=== PATIENT | female | born 1990 | race Caucasian/White ===

== ENCOUNTER → 2016-05-13 | Outpatient (CLI) | payer OTHER ==
[2016-05-13 13:15] LABS: URINE APPEARANCE CLEAR (CLEAR); URINE BILIRUBIN NEG (NEG); URINE COLOR DK YELLOW; URINE NITRITE NEG (NEG); URINE PH 5.5 (4.5-7.5); URINE SPECIFIC GRAVITY 1.027 (1.000-1.030); UROBILINOGEN NEG (NEG)
[2016-05-13 13:38] LABS: MANUAL MICROSCOPIC REQUIRED? NO; REVIEW REQ? NO
== END | disposition home or self-care (01) ==
LOC: C.LABSPEC 11:13
PROVIDERS: ATTEND Obstetrics & Gynecology
DX: Z34.00 Encounter for supervision of normal first pregnancy, unspecified trimester (principal)

== ENCOUNTER → 2016-05-19 | Outpatient (CLI) | payer OTHER ==
[~2016-05-19] MED LIST: CALC-51; OMEG10007 PO; PREN-83
== END | disposition home or self-care (01) ==
LOC: C.PAPS 15:10
PROVIDERS: ATTEND Obstetrics & Gynecology
DX: Z12.4 Encounter for screening for malignant neoplasm of cervix (principal)

== ENCOUNTER → 2016-05-19 | Outpatient (CLI) | payer OTHER ==
[2016-05-19 12:03] LABS: BASO % 0.2 %; BASO ABS # 0.02 K/uL (0-0.2); COMPLETE YES; EOS % 0.4 %; HEMATOCRIT 39.3 % (37-47); IG% 0.4 %; LYMPH % 18.6 %; LYMPH ABS # 1.93 K/uL (1.2-3.4); MEAN CELL VOLUME 83.3 fL (80-100); MEAN CORPUSCULAR HEMOGLOBIN 28.6 pg (25-34); MEAN CORPUSCULAR HGB CONC 34.4 g/dl (32-36); MONO % 6.7 %; NEUT % 73.7 %; PLATELET COUNT 330 K/uL (130-400); RED BLOOD COUNT 4.72 M/uL (4.2-5.4); WHITE BLOOD COUNT 10.38 K/uL (4.8-10.8)
== END | disposition home or self-care (01) ==
LOC: C.LAB1850 10:30
PROVIDERS: ATTEND Obstetrics & Gynecology
DX: Z34.00 Encounter for supervision of normal first pregnancy, unspecified trimester (principal)

== ENCOUNTER → 2016-05-19 | Outpatient (CLI) | payer OTHER ==
[2016-05-22 11:40] LABS: CHLAMYDIA TRACH RNA*** NOT DETECTED (NOT DETECTED); GC (NEIS GONORRHOEAE)RNA** NOT DETECTED (NOT DETECTED)
== END | disposition home or self-care (01) ==
LOC: C.LABSPEC 14:13
PROVIDERS: ATTEND Obstetrics & Gynecology
DX: Z34.00 Encounter for supervision of normal first pregnancy, unspecified trimester (principal)

== ENCOUNTER → 2016-07-15 | Outpatient (CLI) | payer OTHER ==
[2016-07-15 11:19] LABS: GTGD 50 Grams
== END | disposition home or self-care (01) ==
LOC: C.LAB1850 09:23
PROVIDERS: ATTEND Obstetrics & Gynecology
DX: Z34.00 Encounter for supervision of normal first pregnancy, unspecified trimester (principal)

== ENCOUNTER → 2016-10-05 | Outpatient (CLI) | payer OTHER ==
[2016-10-05 16:58] LABS: HEMATOCRIT 33.6 % (37-47)
[2016-10-05 19:19] LABS: URINE APPEARANCE CLEAR (CLEAR); URINE BILIRUBIN NEG (NEG); URINE COLOR YELLOW; URINE EPITHELIAL CELL AUTO >30 /lpf (0-5); URINE NITRITE NEG (NEG); URINE PH 6.5 (4.5-7.5); URINE SPECIFIC GRAVITY 1.024 (1.000-1.030); UROBILINOGEN NEG (NEG)
[2016-10-05 19:23] LABS: MANUAL MICROSCOPIC REQUIRED? NO; REVIEW REQ? NO
[2016-10-05 19:48] LABS: GTGD 50 Grams
== END | disposition home or self-care (01) ==
LOC: C.LAB1850 14:48
PROVIDERS: ATTEND Obstetrics & Gynecology
DX: Z34.02 Encounter for supervision of normal first pregnancy, second trimester (principal)

== ENCOUNTER → 2016-12-02 | Outpatient (CLI) | payer OTHER | END | disposition home or self-care (01) | LOC: C.LABSPEC 17:36 | PROVIDERS: ATTEND Obstetrics & Gynecology | DX: Z34.03 Encounter for supervision of normal first pregnancy, third trimester (principal) ==

== ENCOUNTER → 2017-05-13 | Outpatient (CLI) | payer OTHER ==
[2017-05-13 10:04] LABS: BASO % 0.2 %; BASO ABS # 0.02 K/uL (0-0.2); EOS % 0.4 %; EOS ABS # 0.04 K/uL (0-0.5); HEMATOCRIT 37.9 % (37-47); HEMOGLOBIN 13.2 g/dL (12.0-16.0); IG# 0.01 K/uL (0.00-0.02); LYMPH % 19.8 %; MEAN CELL VOLUME 82.6 fL (80-100); MEAN CORPUSCULAR HEMOGLOBIN 28.8 pg (25-34); MEAN CORPUSCULAR HGB CONC 34.8 g/dl (32-36); MEAN PLATELET VOLUME 9.1 fL (7.4-10.4); MONO % 5.8 %; MONO ABS # 0.53 K/uL (0.11-0.59); NEUT % 73.7 %; PLATELET COUNT 279 K/uL (130-400); RED CELL DISTRIBUTION WIDTH CV 12.8 % (11.5-14.5); RED CELL DISTRIBUTION WIDTH SD 38.4 fL (36.4-46.3)
== END | disposition home or self-care (01) ==
LOC: C.LAB1850 08:57
PROVIDERS: ATTEND Obstetrics & Gynecology
DX: O09.899 Supervision of other high risk pregnancies, unspecified trimester (principal)

== ENCOUNTER → 2017-06-22 | Outpatient (CLI) | payer OTHER | END | disposition home or self-care (01) | LOC: C.LAB1850 10:09 | PROVIDERS: ATTEND Obstetrics & Gynecology | DX: O09.899 Supervision of other high risk pregnancies, unspecified trimester (principal); Z3A.00 Weeks of gestation of pregnancy not specified ==

== ENCOUNTER → 2017-09-13 | Outpatient (CLI) | payer OTHER ==
[2017-09-13 17:29] LABS: HEMATOCRIT 35.5 % (37-47); HEMOGLOBIN 12.1 g/dL (12.0-16.0)
== END | disposition home or self-care (01) ==
LOC: C.LAB1850 17:10
PROVIDERS: ATTEND Obstetrics & Gynecology
DX: Z34.83 Encounter for supervision of other normal pregnancy, third trimester (principal)

== ENCOUNTER 2018-08-22 07:30 | Inpatient (IN) ==
[2018-08-22] MEDS ORDERED: OXYTOCIN 30 UNITS/500 ML BAG IV PRN ×2 (09:07→22:11)
[2018-08-22] MEDS ORDERED: miSOPROStol 200 MCG TAB PV ONE (09:07)
[2018-08-22] MEDS ORDERED: LACTATED RINGER'S 1,000 ML IV PRN (09:07)
[2018-08-22 10:01] LABS: Hemoglobin 13.6 g/dL (12.0-16.0); Mean Corpuscular Volume 82.3 fL (80-100); Mean Platelet Volume 9.3 fL (7.4-10.4); Platelet Count 246 K/uL (130-400); RDW Coefficient of Variation 12.6 % (11.5-14.5); Red Blood Count 4.74 M/uL (4.2-5.4)
[2018-08-22 10:08] LABS: Mean Corpuscular Hgb Conc 34.9 g/dL (32-36)
[2018-08-22 10:18] LABS: Albumin Level 3.4 gm/dl (3.4-5.0); BUN Creatinine Ratio 13.1 (10-20); Calcium 8.3 mg/dl (8.5-10.1); Creatinine Clr Calc Pharmacy 137.2 ml/min; Est GFR (African American) 146.2; Est GFR (Non-African American) 126.2; Potassium 3.6 mmol/L (3.5-5.1)
[2018-08-22 10:21] LABS: Albumin Globulin Ratio 0.9 (0.9-2); Bilirubin,Total 0.6 mg/dl (0.2-1); Globulin 3.7 gm/dl (2.5-4.0); Total Protein 7.1 gm/dl (6.4-8.2)
[2018-08-22 10:28] LABS: Hepatitis B Surface Antibody Immune
[2018-08-22] MEDS ORDERED: IBUPROFEN 800 MG TAB PO STA (10:39)
--- NOTE | 2018-08-22 10:53 | History & Physical Report ---
Date of Service August 22, 2018 Assessment & Plan (1) IUFD at less than 20 weeks of gestation: Admit to L&D. Patient did not complete her initial labs, will do these now. Will let patient eat breakfast, then will start induction process with cytotec. Discussed cytotec protocol - will give 800mcg, then 400mcg Q3h until delivery. Questions answered. Patient and spouse are not sure if they want to do genetic testing of or not. UPDATE: Cytotec 800mcg placed vaginally. History of Present Illness Chief Complaint: IUFD - 15w Primary Care Provider: Osmar Bergman MD 28yo @ 16w3d with IUFD diagnosed in office on with dates 15w2d. complicated by atypical migraines, ASCUS pap with +HPV. No bleed ing/leaking. No contractions. No nausea/vomiting. Patient was offered D&E, but declined. She wants to avoid general anesthesia if at all possible. 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 Adequate-appearing fluid. Results & Data Vital Signs (Past 12 Hours) Vital Signs Temp Pulse Resp BP 08/22/18 08:41 76 104/61 08/22/18 08:37 36.8 C 16
[2018-08-22] MEDS ORDERED: miSOPROStol 200 MCG TAB ONE (13:21)
--- NOTE | 2018-08-22 13:30 | Obstetrical Progress Note ---
Date of Service August 22, 2018 Subjective Feeling slightly crampy. 2nd cytotec dose placed, 400mcg. Cervix still closed. She is asking for ibuprofen at this time. Results & Data Vital Signs (Past 12 Hours) Vital Signs Temp Pulse Resp BP 08/22/18 12:12 36.8 C 75 18 100/59 L 08/22/18 08:41 76 104/61 08/22/18 08:37 36.8 C 16
[2018-08-22] MEDS ORDERED: OXYCODONE/ACETAMINOPHEN 5mg/325mg TAB PO STA (14:02)
[2018-08-22] MEDS ORDERED: OXYCODONE/ACETAMINOPHEN 5mg/325mg TAB ONE (14:03)
[2018-08-22] MEDS: miSOPROStol 200 MCG TAB PO SCH ×3 (16:25→22:28)
[2018-08-22] MEDS ORDERED: OXYCODONE/ACETAMINOPHEN 5mg/325mg TAB PO PRN (17:30)
--- NOTE | 2018-08-22 19:37 | Procedure Note ---
Vaginal Delivery Summary Date of Service August 22, 2018 Vaginal Delivery Summary Vaginal Delivery Summary: Pre-delivery diagnoses: 28yo @ 16w3d with IUFD measuring 15w2d. Post-delivery diagnoses: same Procedure: spontaneous vaginal delivery Surgeon: Mickie Nicole DO Complications: none Findings: Nonviable . Apgars: none . Estimated blood loss: 100cc Description of delivery: When I was called to the room, the patient had already delivered the fetus, it was lying between her legs. The cord was clamped and cut. Approx 100cc clots expelled from the vagina. The placenta was still in the uterus. Another dose of PO cytotec 400mcg will be given to aid in delivery of placenta. The cervix, vagina, and perineum were inspected and no lacerations were noted. Gross inspection of fetus reveals a nonviable approximately 15w gestation. Appears male. No obvious deformities or abnormalities. Mickie Nicole DO [facility]
[2018-08-22] MEDS ORDERED: IBUPROFEN 800 MG TAB PO PRN (20:00)
[2018-08-22] MEDS ORDERED: BISACODYL 10 MG SUPP PR PRN (22:11)
[2018-08-22] MEDS ORDERED: SUPERCREAM 0.870% 15 GM JAR EXT PRN (22:11)
[2018-08-22] MEDS ORDERED: HYDROCORTISONE ACETATE 25 MG SUPP PR PRN (22:11)
[2018-08-22] MEDS ORDERED: BENZOCAINE 20% AER SPR 82.5 GM CAN EXT PRN (22:11)
[2018-08-22] MEDS ORDERED: ACETAMINOPHEN 325 MG TAB PO PRN (22:11)
[2018-08-22] MEDS ORDERED: CEFAZOLIN 1000MG 1,000 MG/7.5 ML SYR IV SCH (22:15)
[2018-08-23 06:49] LABS: Hematocrit (blood only) 32.7 % (37-47); Hemoglobin 11.4 g/dL (12.0-16.0); Mean Corpuscular Hgb Conc 34.9 g/dL (32-36); Mean Corpuscular Volume 82.6 fL (80-100); Mean Platelet Volume 9.3 fL (7.4-10.4); Platelet Count 211 K/uL (130-400); RDW Coefficient of Variation 12.7 % (11.5-14.5); RDW Standard Deviation 38.5 fL (36.4-46.3); Red Blood Count 3.96 M/uL (4.2-5.4); White Blood Count 7.32 K/uL (4.8-10.8)
--- NOTE | 2018-08-23 07:48 | Obstetrical Progress Note ---
Date of Service August 23, 2018 Assessment & Plan (1) IUFD at less than 20 weeks of gestation: PPD#1 doing well. Emotionally stable. Bleeding has slowed. She did pass a small piece of placental tissue this morning. Will plan to discharge to home, followup in office in 2-4 weeks. Discharge instr uctions discussed. Subjective Ambulation: ambulating normally Voiding: no voiding problems Passing Gas:: Yes Diet Tolerance:: regular diet Lochia:: Moderate PPD#1 s/p of IUFD. Feels like she is doing ok emotionally. Knows she will be busy with her 3 children (2 biological sons, 1 step daughter) when she gets home. Review of Systems All systems reviewed & are unremarkable except as noted in HPI & below Physical Exam Gen: AAOx3 NAD CV: RRR L: CTAB Abd: soft, NTTP. Ext: no edema Results & Data Vital Signs (Past 12 Hours) Vital Signs Temp Pulse Resp BP 08/23/18 07:17 75 111/61 08/23/18 03:23 36.7 C 18 08/23/18 03:14 75 97/58 L 08/23/18 02:10 72 100/57 L 08/23/18 01:10 79 93/55 L 08/22/18 23:53 68 98/57 L 08/22/18 23:45 36.7 C 16 08/22/18 23:34 68 99/54 L 08/22/18 23:15 16 08/22/18 23:13 68 113/64 08/22/18 22:53 62 107/60 08/22/18 22:42 18 08/22/18 22:27 18 08/22/18 22:24 81 108/70 08/22/18 22:09 83 116/76 08/22/18 21:57 18 08/22/18 21:53 77 118/73 08/22/18 21:49 75 113/68 08/22/18 21:42 36.7 C 96 H 18 100/56 L 08/22/18 21:27 18
[2018-08-23] MEDS ORDERED: DOCUSATE SODIUM 100 MG CAP PO SCH (08:00)
[2018-08-23] MEDS ORDERED: BISACODYL 5 MG TABEC PO SCH (20:00)
--- NOTE | 2018-08-30 20:19 | Discharge Summary ---
Date of Service August 30, 2018 Admission HPI Per Admitting Provider 28yo @ 16w3d with IUFD diagnosed in office on with dates 15w2d. complicated by atypical migraines, ASCUS pap with +HPV. No bleeding/leaking. No contractions. No nausea/vomiting. Patient was offered D&E, but declined. She wants to avoid general anesthesia if at all possible. Hospital Course (1) IUFD at less than 20 weeks of gestation: PPD#1 doing well. Emotionally stable. Bleeding has slowed. She did pass a small piece of placental tissue this morning. Will plan to discharge to home, followup in office in 2-4 weeks. Discharge instructions discussed.
== END 2018-08-23 10:05 | disposition home or self-care (01) | DRG 807 ==
LOC: 4S1 07:57

== ENCOUNTER 2019-08-20 04:11 | Inpatient (IN) ==
[2019-08-20] MEDS ORDERED: OXYTOCIN 30 UNITS/500 ML BAG IV PRN ×2 (04:23→11:48)
[2019-08-20] MEDS ORDERED: LACTATED RINGER'S 1,000 ML IV PRN (04:23)
[2019-08-20 04:48] LABS: Hematocrit (blood only) 40.6 % (37-47); Hemoglobin 13.4 g/dL (12.0-16.0); Mean Corpuscular Volume 84.9 fL (80-100); Mean Platelet Volume 10.4 fL (7.4-10.4); Platelet Count 202 K/uL (130-400); RDW Coefficient of Variation 13.4 % (11.5-14.5); RDW Standard Deviation 41.4 fL (36.4-46.3); Red Blood Count 4.78 M/uL (4.2-5.4); White Blood Count 9.48 K/uL (4.8-10.8)
--- NOTE | 2019-08-20 07:31 | History & Physical Report ---
Date of Service August 20, 2019 Assessment & Plan (1) : Admit to L&D for labor. Since not tested prior to admission, rapid COVID test on admit. EFM/toco, IV fluids, labs. Does not plan on epidural, however is amenable to AROM if she does not make progress. Admission and Anticipated Discharge Date Admission Date: August 20, 2019 History of Present Illness Chief Complaint: labor Primary Care Provider: Anali Vallecillo PA-C 29yo @ 40 04/28, regular contractions every few minutes. No leaking of fluid, no vaginal bleeding. + movement. complicated by h/o 17w loss in prior , mild cervical dysplasia - plans for repeat pap at 6w PP. Allergies Allergy/AdvReac Type Severity Reaction Status Date / Time No Known Drug Allergies Allergy Verified 08/17/19 15:38 Home Medications Home Medications Medication Instructions Recorded Confirmed Type prenat.vits,irene,hsb-bfcb-tlbty 1 tab PO DAILY 12/29/18 08/20/19 History Patient History Medical History Anemia hx of ASCUS with positive high risk HPV cervical Eczema Encounter for anatomic survey IUFD at less than 20 weeks of gestation (Resolved) August 2018 Migraine Ovarian cyst hx of Surgical History History of removal of skin mole Family History Mother Arthritis Hyperthyroidism Depression Grandfather (Maternal) Diabetes Aunt Diabetes Father Heart disease Hypertension Social History Preferred Language: Jamaican Communication Ability: Effective 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 Beliefs That Will Affect Care: None marital status: Single marital status details: Alirio Peña (36) [phone] Current Living Situation: Family and Significant Other Current Living Situation Comment: lives with FOB and children, no pets current occupational status: unemployed current occupation: Homemaker Other Information That Helps Us Care for You: No Feels Safe at Home: Yes Safety Concerns: Feels Safe At This Time Smoking Status: Never smoker Hx Alcohol Use: No Hx Substance Use: No Review of Systems All systems reviewed & are unremarkable except as noted in HPI & below Physical Exam Physical Exam: Cervix 4-5/90/-2. FHT Cat 1, [place] Q 2-3 Constitutional: WD/WN, vitals as above Respiratory: normal respiratory effort, lungs clear to auscultation no respiratory distress Cardiovascular: Rate/Rhythm: regular rate and regular rhythm Gastrointestinal (Abdomen): Inspection/Auscultation: abdomen normal to inspection Percussion/Palpation: abdomen soft; abdomen nontender Gravid. No s/s chorio or abruption. Skin: no rashes, warm and dry Psychiatric: A+Ox3, euthymic affect Results & Data ([facility]) Vital Signs (Past 12 Hours) Vital Signs Temp Pulse Resp BP 08/20/19 07:25 68 129/66 08/20/19 04:27 36.4 C L 18 08/20/19 04:18 66 131/75 Coding Level of Care Code None Diagnoses Z34.90
--- NOTE | 2019-08-20 10:05 | Obstetrical Progress Note ---
Date of Service August 20, 2019 Assessment & Plan Admission and Anticipated Discharge Date Admission Date: August 20, 2019 Subjective Breathing through contractions. FHT Cat 1 [place] Q 2-6 min SVE 5/90/-2 AROM clear fluid. Results & Data ([facility]) Vital Signs (Past 12 Hours) Vital Signs Temp Pulse Resp BP 08/20/19 07:28 36.4 C L 16 08/20/19 07:25 68 129/66 08/20/19 04:27 36.4 C L 18 08/20/19 04:18 66 131/75 PG Care Time/CCT Total # of Minutes Spent Total Time Spent with Patient: Total time spent is greater than 50% in coordination of care (as documented) at patient's floor/unit and/or counseling patient: Coding Level of Care Code None
--- NOTE | 2019-08-20 11:26 | Delivery Summary ---
Vaginal Delivery Summary Date of Service August 20, 2019 Vaginal Delivery Summary Vaginal Delivery Summary: Pre-delivery diagnoses: 29yo @ 40 04/28, spontaneous labor Post-delivery diagnoses: same Procedure: spontaneous vaginal delivery Surgeon: Mickie Nicole DO Complications: none Findings: Viable female . Apgars: . Weight pending, please see nursery records Estimated blood loss: 300ml Description of delivery: The patient progressed to complete without anesthesia. She then began to push. She spontaneously vaginally delivered a viable from the cephalic presentation. The head delivered in BALA position. No nuchal cord. The anterior shoulder did not deliver immediately, and posterior arm was noted, therefore posterior shoulder was delivered first, and arm followed, then anterior shoulder and body. The baby was placed on mother's abdomen and a spontaneous cry was heard. Delayed cord clamping was employed, and the cord was doubly clamped and cut. Cord blood was obtained. The placenta was delivered spontaneously intact with a 3-vessel cord. The uterus and vagina were swept of clots and debris. IV pitocin was given. The uterus became firm. The cervix, vagina, and perineum were inspected and no lacerations were noted. Excellent hemostasis was observed. The mother and baby are recovering in stable and good condition in the room. Sponge and instrument counts were correct x 2. Mickie Nicole DO [facility] Vaginal Delivery Charge Vaginal Delivery Codes: 48527 global code for the antepartum, delivery, and post-
[2019-08-20] MEDS ORDERED: HYDROCORTISONE ACETATE 25 MG SUPP PR PRN (11:48)
[2019-08-20] MEDS ORDERED: BENZOCAINE 20% AER SPR 82.5 GM CAN EXT PRN (11:48)
[2019-08-20] MEDS ORDERED: OXYCODONE/ACETAMINOPHEN 5mg/325mg TAB PO PRN (11:48)
[2019-08-20] MEDS ORDERED: DIPHTHERIA/TETANUS/PERTUSSIS 0.5 ML SYR/VIAL IM ONE (11:48)
[2019-08-20] MEDS ORDERED: bisacodyL 10 MG SUPP PR PRN (11:48)
[2019-08-20] MEDS ORDERED: ACETAMINOPHEN 325 MG TAB PO PRN (11:48)
[2019-08-20] MEDS ORDERED: SUPERCREAM 0.870% 15 GM JAR EXT PRN (11:48)
[2019-08-20] MEDS: IBUPROFEN 600 MG TAB PO PRN (19:15)
[2019-08-20] MEDS: DOCUSATE SODIUM 100 MG CAP PO SCH (20:34)
[2019-08-21] MEDS: IBUPROFEN 600 MG TAB PO PRN ×2 (03:10→08:43)
[2019-08-21 06:09] LABS: Hematocrit (blood only) 38.7 % (37-47); Hemoglobin 12.8 g/dL (12.0-16.0)
--- NOTE | 2019-08-21 06:24 | Obstetrical Progress Note ---
Date of Service August 21, 2019 Assessment & Plan (1) : PPD#1 s/p doing well. No concerns. Would like to go home today. Reviewed DC instructions. Followup in office in 6w. Subjective Ambulation: ambulating normally Voiding: no voiding problems Diet Tolerance:: regular diet Lochia:: Moderate Feeding Type:: breast feeding PPD#1 doing well. No concerns. Review of Systems All systems reviewed & are unremarkable except as noted in HPI & below Physical Exam Constitutional WD/WN, vitals as above no acute distress Respiratory normal respiratory effort Cardiovascular Rate/Rhythm: regular rate and regular rhythm Gastrointestinal (Abdomen) Inspection/Auscultation: abdomen normal to inspection; abdomen not distended Percussion/Palpation: abdomen soft Genitourinary OB Exam Abdomen: + fundal height Fundus: + firm; not tender Results & Data ([facility]) Vital Signs (Past 12 Hours) Vital Signs Temp Pulse Resp BP Pulse Ox 08/21/19 03:10 36.8 C 79 14 117/72 96 08/20/19 23:30 36.7 C 80 16 115/73 96 08/20/19 20:00 37.2 C 76 16 126/81 96
[2019-08-21] MEDS: DOCUSATE SODIUM 100 MG CAP PO SCH (08:36)
[2019-08-21] MEDS ORDERED: PRENATAL VITAMIN 1 TAB PO SCH (09:00)
[2019-08-21] MEDS ORDERED: bisacodyL 5 MG TABEC PO SCH (20:00)
== END 2019-08-21 15:35 | disposition home or self-care (01) | DRG 807 ==
LOC: OPB 04:11 → 4S1 04:12 → 4S2 13:57

== ENCOUNTER 2022-06-06 01:54 | Inpatient (IN) ==
[2022-06-06] MEDS ORDERED: LIDOCAINE 1% LOCAL 20 ML VIAL INFIL PRN (02:37)
[2022-06-06] MEDS ORDERED: OXYTOCIN 30 UNITS/500 ML BAG IV PRN ×3 (02:37→08:16)
[2022-06-06] MEDS ORDERED: LACTATED RINGER'S 1,000 ML IV PRN (02:37)
--- NOTE | 2022-06-06 03:02 | History & Physical Report ---
Date of Service June 06, 2022 Assessment & Plan (1) Supervision of normal intrauterine in multigravida: Plan: multiparous female with SPROM 3 hours ago and only rare spontaneous contractions now patient agreeable to starting pitocin augmentation now planning unmedicated as she has done with her other 3 children anticipate vaginal Admission and Anticipated Discharge Date Admission Date: June 06, 2022 History of Present Illness Primary Care Provider: SAL Dale Patient is a 32 yo female EDC 06/17/22 who presents with SPROM for large amount of clear fluid at 2330. no contractions prior or since SPROM. baby active. GBS -negative. complicated by LGA and hypothyroidism. Allergies Allergy/AdvReac Type Severity Reaction Status Date / Time No Known Drug Allergies Allergy Verified 06/04/22 16:00 Home Medications Medication Instructions Recorded Confirmed Type prenat.vits,irene,amb-gmvb-oqtyf 1 tab PO DAILY 11/19/21 06/04/22 History levothyroxine 88 mcg tablet 88 mcg PO DAILY #30 tabs 04/06/22 06/04/22 Rx breast pump #1 ea 05/08/22 06/04/22 Rx Patient History Medical History Anemia ASCUS with positive high risk HPV cervical Dysplasia of cervix, low grade (LAURITA 1) Eczema History of chicken pox History of COVID-19 Hypothyroid IUFD at less than 20 weeks of gestation Migraine Mild dysplasia of cervix (LAURITA I) Ovarian cyst Surgical History History of colposcopy History of removal of skin mole S/P dilatation and curettage Family History Mother Arthritis Hyperthyroidism Depression Grandfather (Maternal) Diabetes Aunt Diabetes Father Heart disease Hypertension Denies family history of Ovarian cancer Prostate cancer Breast cancer Lung cancer Social History Smoking Status: Never smoker Second Hand Exposure: No; Do You Dip or Chew Tobacco: No; Tobacco Cessation Education Requested by Patient: No Hx Alcohol Use: No Hx Substance Use: No Preferred Language: Frisian Communication Ability: Effective Layaway Clerk Required: No Beliefs That Will Affect Care: None marital status: marital status details: Alirio Peña (39) [phone] Current Living Situation: Family Current Living Situation Comment: Lives with , 4 children, and 1 dog current occupational status: unemployed current occupation: Homemaker Other Information That Helps Us Care for You: No Feels Safe at Home: Yes Safety Concerns: Feels Safe At This Time Assistive Devices: None OB History x 3 MAB X 2- 16 & 17 week demises Review of Systems All systems reviewed & are unremarkable except as noted in HPI & below Physical Exam Constitutional: WD/WN, vitals as above Psychiatric: A+Ox3, euthymic affect Genitourinary: OB Exam Abdomen: + vertex and + irregular contractions (rare) Manual OB Exam: + cervical dilation (1-2cm), + cervical effacement 60% and + station -2 OB Exam Monitor Tracing: + external FHT monitor used, + external uterine monitor used, + category I and + normal FHT variability Results & Data Vital Signs (Past 12 Hours) Vital Signs Temp Pulse Resp BP 06/06/22 02:02 97.7 F 97 H 16 132/77 06/06/22 02:00 97 H 132/77 Code Status & VTE Plan VTE Prophylaxis Plan VTE Prophylaxis will be ordered: No Coding Level of Care Code None Diagnoses Supervision of normal intrauterine in multigravida Z34.80
[2022-06-06 03:50] LABS: Hematocrit (blood only) 35.7 % (37.0-47.0); Mean Corpuscular Hemoglobin 27.7 pg (25.0-34.0); Mean Corpuscular Hgb Conc 33.6 g/dL (32.0-36.0); Mean Corpuscular Volume 82.4 fL (80.0-100.0); Mean Platelet Volume 10.6 fL (9.4-12.4); Platelet Count 214 K/uL (130-400); Red Blood Count 4.33 M/uL (4.20-5.40); White Blood Count 11.55 K/ul (4.8-10.8)
[2022-06-06] MEDS ORDERED: BENZOCAINE 20% AER SPR 82.5 GM CAN EXT PRN (08:16)
[2022-06-06] MEDS ORDERED: bisacodyL 10 MG SUPP PR PRN (08:16)
[2022-06-06] MEDS ORDERED: oxyCODONE/ACETAMINOPHEN 5mg/325mg TAB PO PRN (08:16)
[2022-06-06] MEDS ORDERED: DIPHTHERIA/TETANUS/PERTUSSIS 0.5mL SYR/VIAL (Age 7+yrs) IM ONE (08:16)
[2022-06-06] MEDS ORDERED: HYDROCORTISONE ACETATE 25 MG SUPP PR PRN (08:16)
[2022-06-06] MEDS: LEVOTHYROXINE SODIUM 88 MCG TABLET PO SCH (08:47)
--- NOTE | 2022-06-06 09:08 | Delivery Summary ---
Vaginal Delivery Summary Date of Service June 06, 2022 Vaginal Delivery Summary [facility] Patient is a 32-year-old 6 para 3-0-2-3 female who presents at 38+ weeks with spontaneous rupture of membranes for clear fluid. There were no spontaneous contractions following rupture and after 3 hours Pitocin augmentation was begun. She progressed to full dilation and pushed effectively over intact perineum for delivery of a viable female . A loose nuchal cord was reduced prior to delivering the shoulders. The rest of the was delivered with minimal maternal effort. She was placed on the mother's abdomen for further attention and after stimulation, she was vigorous crying and moving all 4 limbs. The cord was clamped and cut after 1 minute. After cord blood was obtained the placenta was expressed intact with a three-vessel cord. bleeding was controlled with dilute Pitocin and fundal massage. There were bilateral superficial labial abrasions present that were not bleeding and therefore not repaired the perineum was otherwise intact. Estimated blood loss was 200 cc. Mother and were doing well after delivery. This was an unmedicated . [facility] Vaginal Delivery Charge Delivery Type Details: [facility]
[2022-06-06] MEDS: IBUPROFEN 600 MG TAB PO PRN ×3 (09:28→23:53)
[2022-06-06] MEDS: ACETAMINOPHEN 325 MG TAB PO PRN ×2 (10:41→19:59)
[2022-06-06] MEDS: DOCUSATE SODIUM 100 MG CAP PO SCH (21:09)
[2022-06-07] MEDS: ACETAMINOPHEN 325 MG TAB PO PRN (02:50)
[2022-06-07] MEDS: LEVOTHYROXINE SODIUM 88 MCG TABLET PO SCH (06:05)
[2022-06-07] MEDS: IBUPROFEN 600 MG TAB PO PRN (06:05)
--- NOTE | 2022-06-07 07:38 | Obstetrical Progress Note ---
Date of Service June 07, 2022 Assessment & Plan (1) Normal vaginal delivery: ready for d/c, instructions reviewed. Subjective Ambulation: ambulating normally Voiding: no voiding problems Passing Gas:: Yes Diet Tolerance:: regular diet Lochia:: Small Feeding Type:: breast feeding Physical Exam Constitutional WD/WN, vitals as above Eyes PERRL, conjunctivae normal, anicteric sclerae Neck normal visual inspection Respiratory normal respiratory effort and able to speak in complete sentences; no respiratory distress and no labored breathing Cardiovascular Rate/Rhythm: regular rate and regular rhythm Extremities: no edema Chest (Breasts) Chest: normal inspection of chest Gastrointestinal (Abdomen) Inspection/Auscultation: abdomen normal to inspection Soft, postgravid Psychiatric A+Ox3, euthymic affect Genitourinary OB Exam Abdomen: + fundal height Fundus: + firm and + relation to umbilicus (fundus just below umbilicus); not tender Results & Data Vital Signs (Past 12 Hours) Vital Signs Temp Pulse Resp BP Pulse Ox O2 Del Method 06/07/22 02:56 97.3 F L 80 20 102/68 96 Room Air 06/07/22 00:00 97.3 F L 75 18 105/69 97 Room Air 06/06/22 20:17 97.7 F 86 20 120/82 98 Room Air
[2022-06-07 07:44] LABS: Hematocrit (blood only) 39.4 % (37.0-47.0); Hemoglobin 12.7 g/dl (12.0-16.0); Mean Corpuscular Hemoglobin 27.6 pg (25.0-34.0); Mean Corpuscular Hgb Conc 32.2 g/dL (32.0-36.0); Mean Corpuscular Volume 85.7 fL (80.0-100.0); Mean Platelet Volume 10.2 fL (9.4-12.4); Platelet Count 205 K/uL (130-400); RDW Coefficient of Variation 14.4 % (11.5-14.5); RDW Standard Deviation 44.5 fL (36.4-46.3)
[2022-06-07] MEDS: DOCUSATE SODIUM 100 MG CAP PO SCH (08:00)
[2022-06-07] MEDS ORDERED: PRENATAL VITAMIN 1 TAB PO SCH (08:00)
[2022-06-07] MEDS ORDERED: bisacodyL 5 MG TABEC PO SCH (20:00)
== END 2022-06-07 12:45 | disposition home or self-care (01) | DRG 807 ==
LOC: OPB 01:54 → 4S1 01:55 → 4E2 11:01

== ENCOUNTER 2024-01-13 07:53 | Inpatient (IN) ==
[2024-01-13] MEDS ORDERED: LIDOCAINE 1% LOCAL 20 ML VIAL INFIL PRN (08:07)
[2024-01-13 08:30] LABS: Hematocrit (blood only) 39.1 % (37.0-47.0); Mean Corpuscular Hemoglobin 27.8 pg (25.0-34.0); Mean Corpuscular Hgb Conc 33.2 g/dL (32.0-36.0); Mean Corpuscular Volume 83.7 fL (80.0-100.0); Mean Platelet Volume 9.7 fL (9.4-12.4); Platelet Count 236 K/uL (130-400); RDW Coefficient of Variation 13.4 % (11.5-14.5); RDW Standard Deviation 40.6 fL (36.4-46.3); Red Blood Count 4.67 M/uL (4.20-5.40)
--- NOTE | 2024-01-13 09:38 | History & Physical Report ---
Date of Service January 13, 2024 Assessment & Plan (1) Supervision of normal intrauterine in multigravida: Plan: 33 yo at 40 1/7 wga presents for IOL VSS Fetus cat 1 Labor - 35cc merlos placed, will start pit GBS neg declines epidural Admission and Anticipated Discharge Date Admission Date: January 13, 2024 History of Present Illness Chief Complaint: IOL Primary Care Provider: SAL Dale 33 yo at 40 1/7 wga presents for IOL. +FM; denies regular ctx, LOF, VB PNI: Hx IUFD x 2 Hypothyroid Past Pregnancies Del. Date GA wks Lbr Lgth wt Sex Type del Anes Place Del Prov ? Comment 12/26/16 39 14 hours 7lbs 6 oz M None [facility] Dr. Dangelo No 11/29/17 39 4hrs 6 lbs 7 oz M NSV D None [facility] Dr Thurman No 08/22/18 16 Demise-Induced V ag [facility] Dr. Nicole cytotec 08/20/19 40 6lbs 15.1 oz F None [facility] Dr Nicole No 05/16/21 17 Demise-D&E 06/06/22 38 8lb 3.9oz F Non e [facility] Dr. Racquel Langford Denies hx stis Allergies Allergy/AdvReac Type Severity Reaction Status Date / Time No Known Drug Allergies Allergy Unknown Verified 01/13/24 08:40 Home Medications Medication Instructions Recorded Confirmed Type 21-iron fu-folic acid 1 tab PO DAILY 05/28/23 01/13/24 History [ Complete] levothyroxine 88 mcg tablet 88 mcg PO DAILY #90 tabs 12/03/23 01/13/24 Rx Patient History Medical History (Updated 01/13/24 @ 08:39 by Cece Reyes RN) Hypothyroid levothryxoine 75mcg History of chicken pox IUFD at less than 20 weeks of gestation x2 05/20/21 delivered at home 2018 History of COVID-19 Tested positive 04/15/21 (home test*)Retested on 05/19/21- Negative Dysplasia of cervix, low grade (LAURITA 1) Mild dysplasia of cervix (LAURITA I) Colpo bx (08/2018) ASCUS with positive high risk HPV cervical Ovarian cyst Hx Anemia Hx no medications Migraine Hx Surgical History S/P dilatation and curettage after 2021 History of colposcopy History of removal of skin mole Family History Mother Arthritis Hyperthyroidism Depression Grandfather (Maternal) Diabetes Aunt Diabetes Father Heart disease Hypertension Denies family history of Ovarian cancer Prostate cancer Breast cancer Lung cancer Social History Smoking Status: Never smoker Second Hand Exposure: No; Do You Dip or Chew Tobacco: No; Hx Alcohol Use: No Hx Substance Use: No Preferred Language: British Communication Ability: Effective Internship Coordinator Required: No Beliefs That Will Affect Care: None marital status: marital status details: Alirio Peña (41) [phone] Current Living Situation: Spouse and Family Current Living Situation Comment: Lives with , 4 children, and 1 dog current occupational status: unemployed current occupation: Homemaker Feels Safe at Home: Yes Safety Concerns: Feels Safe At This Time Assistive Devices: None Physical Exam Genitourinary: OB Exam Abdomen: + vertex (confirmed by bsus) and + estimated weight (7-8) Manual OB Exam: + cervical dilation (1.5), + cervical effacement 50% and + station -2 OB Exam Monitor Tracing: + external FHT monitor used, + external uterine monitor used (none) and + category I (135-140/mod/+accel/-decel) Results & Data Vital Signs (Past 12 Hours) Vital Signs Temp Pulse Resp BP 01/13/24 08:14 18 01/13/24 08:14 99.0 F 18 01/13/24 08:08 115 H 109/65 Laboratory Results OB Labs: Blood Type A Positive 06/04/23 Antibody Screen NEGATIVE 06/04/23 Hgb 12.3 g/dl (12.0-16.0) 10/26/23 Hct 37.6 % (37.0-47.0) 10/26/23 MCV 83.7 fL (80.0-100.0) 06/04/23 Plt Count 334 K/uL (130-400) 06/04/23 Rubella IgG Antibody Immune (Immune) 06/04/23 RPR Nonreactive (Nonreactive) 06/04/23 Treponema pallidum Ab Negative (Negative) 10/26/23 Hep Bs Antigen Neg (Neg) 03/19/21 Hep Bs Antigen NON-REACTIVE (NON-REACTIVE) 06/04/23 Hepatitis C Antibody Neg (Neg) 03/19/21 Hepatitis C Ab (EIA) NON-REACTIVE (NON-REACTIVE) 06/04/23 HIV 1&2 Ab/P24 Ag 4thGn Neg (Neg) 03/19/21 HIV (1&2) Ag & Ab Conf NON-REACTIVE (NON-REACTIVE) 06/04/23 Glucose 1 Hr 50 gm 124 mg/dl (70-130) 10/26/23 OB Optional Labs: Chlamydia trachomatis RNA Not Detected (NotDetected) 06/04/23 Neisseria gonorrhoeae RNA Not Detected (NotDetected) 06/04/23 Thyroid Stimulating Hormone (TSH) 2.213 uIu/ml (0.300-4.500) 12/02/23 Labs Reviewed: Declines genetics--mln GBS neg Diagnostic Findings ant plac Coding Level of Care Code None Diagnoses Supervision of normal intrauterine in multigravida Z34.80
[2024-01-13] MEDS: OXYTOCIN 30 UNITS/NSS 30 UNITS/500 ML BAG IV PRN ×2 (09:50→21:06)
[2024-01-13] MEDS: LACTATED RINGER'S 1,000 ML IV SCH (09:50)
--- NOTE | 2024-01-13 14:17 | Labor Progress Brief Note ---
Date of Service January 13, 2024 Subjective bulb out, ctx manageable Assessment & Plan (1) Supervision of normal intrauterine in multigravida: Plan: 33 yo at 40 1/7 wga presents for IOL VSS Fetus cat 1 Labor - pit at 7, now s/p arom. Continue induction GBS neg declines epidural Admission and Anticipated Discharge Date Admission Date: January 13, 2024 Physical Exam Genitourinary: Manual OB Exam: + cervical dilation 4 cm, + cervical effacement 70%, + station -2 and + amniotic fluid (arom clear) OB Exam Monitor Tracing: + external FHT monitor used, + external uterine monitor used (q3) and + category I (130/mod/+accel/-decel) Results & Data Vital Signs (Past 12 Hours) Vital Signs Temp Pulse Resp BP 01/13/24 14:03 18 01/13/24 14:03 99.0 F 18 01/13/24 13:53 94 H 170/76 H 01/13/24 12:51 86 114/81 01/13/24 12:09 105 H 110/58 L 01/13/24 11:04 16 01/13/24 11:04 99.0 F 16 01/13/24 10:52 85 121/66 01/13/24 10:51 83 205/143 H 01/13/24 09:50 90 108/61 01/13/24 08:14 18 01/13/24 08:14 99.0 F 18 01/13/24 08:08 115 H 109/65 Coding Level of Care Code None Diagnoses Supervision of normal intrauterine in multigravida Z34.80
--- NOTE | 2024-01-13 15:23 | Delivery Summary ---
Vaginal Delivery Summary Date of Service January 13, 2024 Vaginal Delivery Summary [facility] PREOPERATIVE DIAGNOSIS: 1. Single intrauterine at 40 1/7 wga 2. Hypothyroid 3. Hx IUFD x 2 POSTOPERATIVE DIAGNOSIS: 1. Single intrauterine at 40 1/7 wga 2. Hypothyroid 3. Hx IUFD x 2 4. Delivered PROCEDURE: 1. Normal spontaneous vaginal delivery. SURGEON: Maxine Bravo MD ANESTHESIA: None QUANTITATIVE BLOOD LOSS: 162 mL FLUIDS: Continuous LR. URINE OUTPUT: None. COMPLICATIONS: None. CONDITION: Stable. INDICATIONS: 33 yo at 40 1/7 wga presented for IOL. Induction begun with merlos bulb and pitocin. Following bulb expulsion, she underwent arom. She ra pidly progressed to complete and desired to push FINDINGS: A viable female , weight pending with Apgars of 8 and 9 at 1 and 5 minutes respectively. SPECIMEN: Cord blood OPERATIVE REPORT: The patient progressed to 10 cm, 100% effaced and +2 station, pushed over intact perineum with anesthesia to deliver a viable female infant, weight and Apgars as above. Head of delivered in ALEJANDRINA position. Body cord was delivered through. Body and shoulders were delivered without difficulty. was delivered to maternal abdomen and nursing staff. Delayed cord clamping was performed for 60 seconds. Cord was clamped and cut. Cord blood was obtained. Placenta delivered spontaneously intact with 3-vessel cord. IV oxytocin and fundal massage were given for excellent hemostasis. Vagina, cervix, perineum, and placenta were inspected. No lacerations were noted. Sponge and needle counts correct x2. No sponges were left behind. Mother and stable in immediate period. [facility] [place] Vaginal Delivery Charge Vaginal Delivery Codes: 61382 global code for the antepartum, delivery, and post- Delivery Type Details: [facility]
[2024-01-13] MEDS ORDERED: HYDROCORTISONE ACETATE 25 MG SUPP PR PRN (15:33)
[2024-01-13] MEDS ORDERED: OXYTOCIN 30 UNITS/NSS 30 UNITS/500 ML BAG IV PRN (15:33)
[2024-01-13] MEDS ORDERED: ACETAMINOPHEN 325 MG TAB PO PRN (15:33)
[2024-01-13] MEDS: DIPHTHER/TETAN/PERTUS Vaccine (Tdap, Adol/Adult) 0.5mL IM ONE (17:17)
[2024-01-13] MEDS: IBUPROFEN 600 MG TAB PO PRN (18:17)
[2024-01-13] MEDS: BENZOCAINE 20% SPRY 85 APPLN/85 GM CAN EXT PRN (18:17)
[2024-01-13] MEDS: DOCUSATE SODIUM 100 MG CAP PO SCH (20:59)
--- NOTE | 2024-01-13 21:12 | Communication Note ---
Date of Service: January 13, 2024 Called by nursing due to bleeding. Had a large gush on night nurse first check, next pad was almost soaked about an hour later. Fundus is firm, small trickle seen with fundal massage. Voiding well. Will give extra bag of pit and dose of IM methergine for now and continue to monitor
[2024-01-13] MEDS: METHYLERGONOVINE MALEATE 0.2 MG/ML AMP IM STA (21:15)
[2024-01-14] MEDS ORDERED: bisacodyL 10 MG SUPP PR PRN
--- NOTE | 2024-01-14 05:38 | Obstetrical Progress Note ---
Date of Service <Manuela To MD - Last Filed: 01/14/24 06:44> January 14, 2024 Assessment & Plan <Manuela To MD - Last Filed: 01/14/24 06:44> (1) care and examination: Plan PPD#1 s/p term : Stable. Rh+, gbs-, ri Continue routine care, continue OOB and ambulation, diet as tolerated Plan for DC later today + when baby is cleared <Maxine Bravo MD - Last Filed: 01/14/24 07:44> (1) care and examination: Subjective <Manuela To MD - Last Filed: 01/14/24 06:44> Mary is a 33 y/o female who is PPD#1 following at term. Reports minimal pain Is voiding, eating, and ambulating normally Bleeding has improved; maybe 1/2 pad Planning for exclusive . Constitutional: no fever, no chills or no sweats Respiratory: no dyspnea Cardiovascular: no chest pain, no palpitations or no calf pain Breast: no breast pain Gastrointestinal: no nausea or no vomiting Genitourinary (female): no dysuria Neurologic: no headache(s) no changes in vision, no headaches Physical Exam <Manuela To MD - Last Filed: 01/14/24 06:44> General: Alert, oriented. No acute distress. Cardiac: Regular rate and rhythm, no murmurs, rubs, or gallops. Respiratory: Clear to auscultation bilaterally. No increased work of breathing. Symmetrical chest rise. No respiratory distress. Abdomen: Soft, nontender, nondistended. Bowel sounds present. Uterus: Uterine fundus firm, nontender, palpable 2 cm below the umbilicus. Lower extremities: No lower extremity edema or swelling. No deep calf pain. Results & Data <Manuela To MD - Last Filed: 01/14/24 06:44> Vital Signs (Past 12 Hours) Vital Signs Temp Pulse Pulse Resp BP BP Pulse Ox 01/14/24 03:19 36.7 C 97 H 18 111/71 97 01/13/24 23:00 37 C 80 18 121/78 98 01/13/24 18:55 37 C 80 16 129/79 97 01/13/24 18:10 36.9 C 18 01/13/24 17:49 93 H 123/65 O2 Del Method 01/14/24 03:19 Room Air 01/13/24 23:00 Room Air 01/13/24 18:55 Room Air 01/13/24 18:10 01/13/24 17:49 Supervising Physician <Maxine Bravo MD - Last Filed: 01/14/24 07:44> Co-Signing Physician Notes Resident Physician Supervision Note: I interviewed and examined the patient. Discussed with Dr. To and agree with findings and plan as documented in the note. Any exceptions or clarifications are listed here: PP1 s/p , doing well. VSS, exam benign and wnl. Desires dc today Documented By: Maxine Bravo MD Resident Activity Tracking <Manuela To MD - Last Filed: 01/14/24 06:44> Resident Involvement: Resident Care Provided Care Provided: Adult Hospital Medicine and OB Delivery
[2024-01-14] MEDS: LEVOTHYROXINE SODIUM 88 MCG TABLET PO SCH (06:01)
[2024-01-14] MEDS: FERROUS SULFATE 325 MG TAB PO SCH (07:18)
[2024-01-14] MEDS: PRENATAL VITAMIN 1 TAB PO SCH (07:18)
[2024-01-14 08:13] VITALS: BP 128/80; PULSE 80; RESP 16; TEMP 98.2; O2SAT 96
[2024-01-14] MEDS ORDERED: bisacodyL 5 MG TABEC PO SCH (20:00)
== END 2024-01-14 16:30 | disposition home or self-care (01) | DRG 807 ==
LOC: 4S1 07:53 → 4E2 19:25